=== PATIENT | female | born 1975 | race Two or more races ===

== ENCOUNTER 2020-01-26 23:36 | Emergency (ER) | payer SELFPAY ==
[~2020-01-26] VITALS: Ht 157.5 cm; Wt 77.1 kg
[2020-01-27 00:32] VITALS: BP 137/75
[2020-01-27] MEDS ORDERED: TETRACAINE HCL 0.5% OPTH(EYE) SOLN 4ML LEFTEYE ONE (02:00)
[2020-01-27] MEDS ORDERED: FLUORESCEIN SOD 1 MG TEST STRIP LEFTEYE ONE (02:00)
== END 2020-01-27 02:48 | disposition home or self-care (01) ==
LOC: ER 23:36
DX: H57.12 Ocular pain, left eye (principal)